=== PATIENT | male | born 1970 | race African-American/Black ===

== ENCOUNTER 2017-10-02 22:32 | Emergency (ER) | payer MEDICAID ==
[~2017-10-02] VITALS: Ht 172.7 cm; Wt 66.0 kg
[2017-10-02 22:44] VITALS: BP 156/98
[2017-10-03] MEDS ORDERED: IBUPROFEN 600MG TABLET PO ONE (00:30)
== END 2017-10-03 01:30 | disposition home or self-care (01) ==
LOC: ER 22:32
DX: S16.1XXA Strain of muscle, fascia and tendon at neck level, initial encounter (principal); V89.2XXA Person injured in unspecified motor-vehicle accident, traffic, initial encounter; F17.200 Nicotine dependence, unspecified, uncomplicated; F12.10 Cannabis abuse, uncomplicated; Z88.8 Allergy status to other drugs, medicaments and biological substances
CPT/HCPCS: 99282